=== PATIENT | male | born 2000 | race Caucasian/White ===

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

== ENCOUNTER 2021-06-16 17:13 | Emergency (ER) | payer OTHER ==
[2021-06-16 19:31] VITALS: BP 152/96; PULSE 64
== END 2021-06-16 20:11 | disposition home or self-care (01) ==
LOC: DL.ED 17:13
DX: S06.0X0A Concussion without loss of consciousness, initial encounter (principal); W22.09XA Striking against other stationary object, initial encounter
CPT/HCPCS: 99283

== ENCOUNTER 2021-06-17 23:07 | Emergency (ER) | payer OTHER ==
[2021-06-17] MEDS ORDERED: Ibuprofen 600 MG Tab PO ONE (23:26)
[2021-06-17] MEDS ORDERED: Ondansetron 4 MG Tab.DIS PO ONE (23:26)
[2021-06-17 23:45] VITALS: BP 121/55; PULSE 87
== END 2021-06-18 00:27 | disposition home or self-care (01) ==
LOC: DL.ED 23:07
DX: F07.81 Postconcussional syndrome (principal); E66.9 Obesity, unspecified
CPT/HCPCS: 70450; 99284; A9270; 99283

== ENCOUNTER 2021-12-12 23:43 | Emergency (ER) | payer BC, OTHER ==
[2021-12-13 00:31] VITALS: BP 145/79; PULSE 72
== END 2021-12-13 00:27 | disposition home or self-care (01) ==
LOC: DL.ED 23:43
DX: S62.307A Unspecified fracture of fifth metacarpal bone, left hand, initial encounter for closed fracture (principal); E66.9 Obesity, unspecified; Z68.41 Body mass index [BMI] 40.0-44.9, adult; W22.09XA Striking against other stationary object, initial encounter
CPT/HCPCS: 29125; 73130-LT; 99283

== ENCOUNTER 2022-05-04 07:49 | Emergency (ER) | payer BC ==
[2022-05-04] MEDS ORDERED: Sodium Chloride 0.9% 10 ML Syringe FLUSH PRN (08:00)
[2022-05-04] MEDS ORDERED: Iopamidol 612 MG/ML 100 ML Bottle IVPUSH ONE (08:01)
[2022-05-04 08:03] VITALS: BP 132/65; PULSE 85
[2022-05-04 08:36] LABS: ANION GAP 13.1 mEq/L (7-13)
[2022-05-04] MEDS ORDERED: GI Cocktail Oral Solution 30 ML PO ONE (09:09)
[2022-05-04 09:22] LABS: CORONAVIRUS COVID-19 NAA NEGATIVE (NEGATIVE)
== END 2022-05-04 09:38 | disposition home or self-care (01) ==
LOC: DL.ED 07:49
DX: R10.12 Left upper quadrant pain (principal); E66.9 Obesity, unspecified; Z68.41 Body mass index [BMI] 40.0-44.9, adult; Z20.822 Contact with and (suspected) exposure to COVID-19
CPT/HCPCS: 0240U; 36415; 71046; 74177; 80053; 81003; 83690; 85025; 99283; 99284; A9270; J3490; Q9967

== ENCOUNTER 2022-07-14 22:51 | Emergency (ER) | payer BC, OTHER ==
[2022-07-14 23:02] VITALS: BP 139/76; PULSE 89
[2022-07-14 23:42] LABS: CORONAVIRUS COVID-19 NAA NEGATIVE (NEGATIVE); RESPIRATORY SYNCYTIAL VIR NAA NEGATIVE (NEGATIVE)
[2022-07-14] MEDS ORDERED: methylPREDNISolone Sodium Succinate 125 MG/2 ML SDV IM ONE (23:57)
[2022-07-15 00:08] LABS: ANION GAP 12.4 mEq/L (7-13); CHLORIDE,CL 104 mmol/L (98-107); SODIUM,NA 142 mmol/L (136-145)
[2022-07-15 00:11] LABS: ESTIMATED GFR 109 mL/min (>=60)
== END 2022-07-15 00:30 | disposition home or self-care (01) ==
LOC: DL.ED 22:51
DX: J04.0 Acute laryngitis (principal); E66.9 Obesity, unspecified; Z68.41 Body mass index [BMI] 40.0-44.9, adult; Z86.16 Personal history of COVID-19; Z72.0 Tobacco use; Z20.822 Contact with and (suspected) exposure to COVID-19
CPT/HCPCS: 0241U; 36415; 71045; 80053; 83605; 85025; 86140; 87081; 87430; 96372; 99283; J2930; 99284

== ENCOUNTER 2024-03-27 23:10 | Emergency (ER) | payer BC ==
[2024-03-27 23:42] LABS: BASOPHILS PERCENT AUTO 0.4 % (0.0-1.0); EOSINOPHILS PERCENT AUTO 1.8 % (1.0-3.0); HEMATOCRIT 44.7 % (40.0-54.0); LYMPHOCYTES PERCENT AUTO 34.6 % (20.5-50.1); MEAN CORPUSCULAR HEMOGLOBIN 30.4 pg (27.0-34.0); MEAN CORPUSCULAR HGB CONC 33.6 g/dL (33.0-35.0); MEAN CORPUSCULAR VOLUME 90.7 fL (80-100); MONOCYTES PERCENT AUTO 10.7 % (2-8); NEUTROPHILS PERCENT AUTO 52.5 % (42.2-75.2); PLATELET COUNT,PLT 220 10^3/uL (150-450); RED BLOOD CELL COUNT 4.93 10^6/uL (4.6-6.2); WHITE BLOOD CELL COUNT,WBC 8.4 10^3/uL (5.0-10.0)
[2024-03-27] MEDS: GI Cocktail Oral Solution 30 ML PO ONE (23:42)
[2024-03-28 00:02] VITALS: BP 122/78; PULSE 110
[2024-03-28 00:07] LABS: A/G RATIO 1.1; ALANINE AMINOTRANSFERASE,ALT 104 U/L (16-63); ALBUMIN 3.7 g/dL (3.4-5.0); ALKALINE PHOSPHATASE 81 U/L (46-116); ASPARTATE AMNIOTRANSFERASE,AST 35 U/L (15-37); BILIRUBIN TOTAL 0.5 mg/dL (0.2-1.0); BLOOD UREA NITROGEN,BUN 7 mg/dL (7-18); BUN/CREATININE RATIO 6.8 (No establ ref range); CARBON DIOXIDE,CO2 31 mmol/L (21-32); CHLORIDE,CL 102 mmol/L (98-107); CREATININE 1.03 mg/dL (0.70-1.30); EST CRCL DRUG DOSING (CG) 138.11 mL/min; ESTIMATED GFR 105 mL/min (>=60); GLUCOSE RANDOM 104 mg/dL (70-99); LIPASE 27 U/L (16-77); MAGNESIUM 1.8 mg/dL (1.8-2.4); PROTEIN TOTAL,TP 7.2 g/dL (6.4-8.2); SODIUM,NA 140 mmol/L (136-145); TSH ULTRASENSITIVE 1.85 uIU/mL (0.36-3.74)
== END 2024-03-28 00:27 | disposition home or self-care (01) ==
LOC: DL.ED 23:10
DX: K21.9 Gastro-esophageal reflux disease without esophagitis (principal); E66.9 Obesity, unspecified; Z86.16 Personal history of COVID-19; Z90.89 Acquired absence of other organs; Z68.42 Body mass index [BMI] 45.0-49.9, adult
CPT/HCPCS: 36415; 71045; 80053; 83690; 83735; 84443; 84484; 85025; 85379; 93005; 99285; A9270; 93010; 99284

== ENCOUNTER 2024-05-30 03:15 | Emergency (ER) | payer BC ==
[2024-05-30 03:26] VITALS: BP 145/82; PULSE 99
== END 2024-05-30 03:33 | disposition home or self-care (01) ==
LOC: DL.ED 03:15
DX: S01.511A Laceration without foreign body of lip, initial encounter (principal); Z86.16 Personal history of COVID-19; Y04.0XXA Assault by unarmed brawl or fight, initial encounter; Y93.89 Activity, other specified
CPT/HCPCS: 99282

== ENCOUNTER 2024-06-10 05:16 | Emergency (ER) | payer BC ==
[2024-06-10 06:03] VITALS: BP 144/73; PULSE 106
[2024-06-10] MEDS: Ibuprofen 800 MG Tab PO ONE (06:44)
== END 2024-06-10 06:48 | disposition home or self-care (01) ==
LOC: DL.ED 05:16
DX: J10.1 Influenza due to other identified influenza virus with other respiratory manifestations (principal); F17.290 Nicotine dependence, other tobacco product, uncomplicated; E66.9 Obesity, unspecified; Z86.16 Personal history of COVID-19; Z68.42 Body mass index [BMI] 45.0-49.9, adult
CPT/HCPCS: 87428; 87430; 99282; 99284; A9270